=== PATIENT | male | born 1980 | race Caucasian/White ===

== ENCOUNTER 2016-05-28 09:54 | Observation (INO) | payer OTHER, BC ==
[2016-05-28] MEDS ORDERED: ONDANSETRON 4 MG/2ML 2 ML VIAL ONE (10:39)
[2016-05-28] MEDS ORDERED: HYDROMORPHONE HCL 1 MG/ML SYRINGE ONE ×3 (10:39→12:57)
[2016-05-28 10:45] LABS: ABSOLUTE NEUTROPHIL COUNT 11.7 K/mm3 (1.8-7.7); BASO # 0.1 K/mm3 (0.0-0.2); BASO % 0.4 % (0.2-1.0); EOS # 0.1 (0.0-0.5); EOS % 0.4 % (0.9-2.9); HEMATOCRIT 45.4 % (32.0-52.0); HEMOGLOBIN 15.1 gm/l (14.0-18.0); IMM NEUT # 0.1 K/mm3 (0-0.2); IMM NEUT% 0.3 % (0-1); LYMPH # 2.3 (1.0-4.8); LYMPH % 14.7 % (15-45); MEAN CELL VOLUME 85.8 fl (80.0-94.0); MEAN CORPUSCULAR HEMOGLOBIN 28.5 pg (27.0-31.0); MEAN CORPUSCULAR HGB CONC 33.3 g/dl (33.0-37.0); MEAN PLATELET VOLUME 8.8 fl (7.4-10.4); MONO # 1.5 (0.0-0.8); MONO % 9.5 % (4-12); NEUT % 74.7 % (43-75); PLATELET COUNT 237 K/mm3 (130-400); RED CELL DISTRIBUTION WIDTH 12.3 % (11.5-14.5)
[2016-05-28 10:49] LABS: SPECIFIC GRAVITY 1.015 (1.001-1.030); URINE BILIRUBIN NEGATIVE (NEGATIVE); URINE BLOOD 1+ (NEGATIVE); URINE GLUCOSE (UA) NEGATIVE (NEGATIVE); URINE LEUKOCYTE ESTERASE NEGATIVE (NEGATIVE); URINE NITRITE NEGATIVE (NEGATIVE); URINE PROTEIN TRACE (NEGATIVE); URINE UROBILINOGEN NORMAL (0-1 mg/dl)
[2016-05-28 10:50] LABS: URINE APPEARANCE CLEAR; URINE COLOR YELLOW
[2016-05-28 10:57] LABS: URINE BACTERIA 0; URINE EPITHELIAL CELLS 0 /hpf; URINE RBC 0-1 /hpf; URINE WBC NEG /hpf
[2016-05-28 11:00] LABS: ALB/GLOB RATIO 1.1 (>1.0); ALBUMIN 3.9 gm/dL (3.5-5.7)
--- NOTE | 2016-05-28 11:40 | CT ---
Name: SAVI COFFMAN Exam: Noncontrast renal stone CT Comparison: None Clinical History: Left lower quadrant pain Procedure: Helical CT using multidetector technique was applied to the abdomen and pelvis without contrast. Sagittal, axial and coronal reconstructions were obtained. An automated dose reduction technique was used to minimize patient radiation dose. Findings: CT abdomen (noncontrast): Lung bases are clear. Heart is nonenlarged. There is no pericardial effusion. Noncontrast images liver, gallbladder, pancreas, spleen, adrenal glands, right kidney, aorta, IVC, portal vein, stomach, small bowel and colon are normal. There is minimal left hydronephrosis and ureterectasis. There is also minimal left perinephric stranding and periureteral stranding. Regional skeleton is unremarkable. CT pelvis (noncontrast): Bladder is normal size. In the left ureterovesical junction, there is a 3 mm calculus. The left ureter above this level is mildly dilated. Right ureter is normal. Prostate and seminal vesicles are normal. Small bowel, colon and appendix are normal. There is a subcentimeter dense calcification in the peritoneal fat to the pelvis without prior inflammatory process. There is no free air, free fluid or suspicious adenopathy. Impression: 3 mm calculus within the left ureterovesical junction causing mild left hydronephrosis and ureterectasis. Note: The above report was uploaded to [facility]'s electronic medical records system at 1136 hours.
--- NOTE | 2016-05-28 12:02 | US ---
Name: SAVI COFFMAN Exam: Testicular ultrasound Comparison: None Clinical history: Left scrotal pain Findings: Testicular size, shape and echogenicity is normal. Right side measures 3.9 x 2.9 x 2.2 cm and left measures 2.8 x 2.7 x 2.5 cm. Blood flow is symmetric and normal. There is no testicular mass or calcification. There is no significant hydrocele and there is no varicocele. Right epididymal head is 1.5 cm in greatest dimension and left is 8 mm in greatest dimension. There is a 4 mm left epididymal head cyst. Impression: 1. No testicular mass or torsion 2. 4 mm left epididymal head cyst 3. No acute finding Note: The above report was uploaded to [facility]'s electronic medical records system at 1158 hours.
[2016-05-28] MEDS ORDERED: SODIUM CHLORIDE 0.9% 1,000 ML ONE (12:14)
[2016-05-28] MEDS ORDERED: KETOROLAC TROMETHAMINE 15 MG/ML VIAL ONE (12:51)
[2016-05-28] MEDS ORDERED: TAMSULOSIN HCL 0.4 MG CAPSULE.DR ONE (12:51)
[2016-05-28 13:30] VITALS: BMI 44.1
[2016-05-28] MEDS ORDERED: SODIUM CHLORIDE 0.9% 100 ML IV PRN (13:31)
[2016-05-28] MEDS ORDERED: BLISTEX LIPSTICK 1 EACH TP PRN (13:31)
[2016-05-28] MEDS ORDERED: MENTHOL/CETYLPYRD 1 EACH LOZENGE PO PRN (13:31)
[2016-05-28] MEDS ORDERED: SODIUM CHLORIDE 0.9% 1,000 ML IV SCH (13:31)
[2016-05-28] MEDS ORDERED: TAMSULOSIN HCL 0.4 MG CAPSULE.DR PO ONE (13:38)
[2016-05-28] MEDS ORDERED: FLU VACC 2016-17 (36MO-64Y)/PF 60 MCG/0.5 ML SYRINGE IM V ONE (13:45)
[2016-05-28] MEDS ORDERED: PUMP TUBING ONE (13:53)
[2016-05-28] MEDS ORDERED: HYDROMORPHONE HCL 0.5 MG/0.5 ML SYRINGE IV PRN (14:00)
--- NOTE | 2016-05-28 15:33 | HP ---
SAVI PATRICIO [id number] : 1980 DATE OF ADMISSION: May 28, 2016 IDENTIFICATION: Mr. Patricio is a 36-year-old patient of Dr. Phi Vasquez. CHIEF COMPLAINT: Left flank and groin pain. HISTORY OF PRESENT ILLNESS: Mr. Patricio had onset of pain in his left flank radiating into his left groin and associated with nausea starting about three days ago. This was similar to a previous kidney stone which he had in August,. He was seen at [facility] two days ago and found to have hematuria and given prescriptions for codeine, Zofran and Flomax for presumed nephrolithiasis but did not have any further workup. His pain has persisted so he came in to [facility] today where CT does show a 3 mm stone at the left ureterovesical junction as well as left hydronephrosis, and laboratories show acute kidney injury. His creatinine at [facility] was 1.06 and today is 2.0. REVIEW OF SYSTEMS: HEENT: No symptoms. RESPIRATORY: Some cough secondary to vomiting. No dyspnea. CARDIAC: No symptoms. GASTROINTESTINAL: Nausea and vomiting secondary to pain. GENITOURINARY: No dysuria. MUSCULOSKELETAL: No symptoms. PAST MEDICAL HISTORY: 1. Nephrolithiasis with a previous episode in August of 2015. 2. Morbid obesity. Body mass index 44.2. PAST SURGICAL HISTORY: None. MEDICATIONS: No chronic medications. As above, he did have some codeine, ondansetron and Flomax prescribed at [facility] for this episode. ALLERGIES: NO MEDICATION ALLERGIES BUT HE IS INTOLERANT OF HYDROCODONE WHICH GAVE HIM SEVERE VOMITING. HABITS: Occasional alcohol use, one or two beers about twice a week. No tobacco or other drugs. 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 Lives in [place] with his and children. FAMILY HISTORY: Several cases of cancer including breast and pancreatic cancer on his mother's side of the family. PHYSICAL EXAMINATION: GENERAL: This is an obese 36-year-old gentleman. He appears comfortable at this point after several doses of hydromorphone. VITAL SIGNS: Temperature 97.8 degrees Fahrenheit, pulse 73, blood pressure 123/76, respiratory rate 18, oxygen saturation 94% on room air. HEENT: Pupils are equal, round and reactive. Extraocular muscles are intact. Oropharynx is moist. CHEST: Clear to auscultation. HEART: Is regular, no murmur. ABDOMEN: Obese, soft, nontender. Normal bowel tones. EXTREMITIES: Good peripheral pulses. No cyanosis, clubbing or edema. NEUROLOGIC: Alert and oriented, no focal deficits. LABORATORY DATA: White blood cell count is 15.6, hemoglobin and hematocrit 15.1 and 45.4, platelets 237. Sodium 138, potassium 4.0, chloride 105, CO2 24, BUN 14, creatinine 2.0, glucose 106. Liver enzymes are normal. Urinalysis, specific gravity 1.015, trace protein, 1+ blood, no indication of infection. RADIOLOGY: 1. CT scan of the abdomen and pelvis positive for 3 mm calculus at the left ureterovesical junction and mild left hydronephrosis. 2. Ultrasound of the scrotum negative for testicular torsion. There is a 4 mm left epididymal head cyst. No acute findings. ASSESSMENT: Mr. Patricio is a 36-year-old who presents with ureterolithiasis causing hydronephrosis and acute kidney injury. He has underlying morbid obesity. PLAN: 1. Refer to observation on medical/surgical floor. 2. Hydration with IV normal saline. 3. Pain control with IV hydromorphone and nausea control with ondansetron if necessary. 4. Oral tamsulosin. 5. Strain all urine. We will try to collect the stone and send it for analysis. 6. Repeat laboratories in the morning. 7. FULL CODE status. 8. Venous thromboembolism risk is low, and he does not require prophylaxis.
[2016-05-28] MEDS: SODIUM CHLORIDE 0.9% 1,000 ML IV SCH ×2 (15:34→19:41)
[2016-05-28] MEDS: ONDANSETRON 4 MG/2ML 2 ML VIAL IV PRN ×2 (17:48→19:44)
[2016-05-28] MEDS: HYDROMORPHONE HCL 1 MG/ML SYRINGE IV PRN ×2 (17:48→19:42)
[2016-05-29] MEDS: SODIUM CHLORIDE 0.9% 1,000 ML IV SCH ×7 (00:03→23:15)
[2016-05-29] MEDS: HYDROMORPHONE HCL 1 MG/ML SYRINGE IV PRN ×7 (00:13→23:15)
[2016-05-29] MEDS: ONDANSETRON 4 MG/2ML 2 ML VIAL IV PRN ×8 (00:14→23:15)
[2016-05-29 06:10] LABS: HEMATOCRIT 40.4 % (32.0-52.0); HEMOGLOBIN 13.1 gm/l (14.0-18.0); MEAN CELL VOLUME 89.8 fl (80.0-94.0); MEAN CORPUSCULAR HEMOGLOBIN 29.1 pg (27.0-31.0); MEAN CORPUSCULAR HGB CONC 32.4 g/dl (33.0-37.0); RED CELL DISTRIBUTION WIDTH 12.4 % (11.5-14.5)
[2016-05-29 06:35] LABS: CALCIUM 9.5 mg/dL (8.6-10.3)
--- NOTE | 2016-05-29 07:32 | PDOC43 ---
- Subjective Chief Complaint: left groin pain Continues to have pain when hydromorphone wears off, some bloody urine. - Objective Vital Signs Temperature 99.2 F 05/29/16 03:20 Pulse Rate 71 05/29/16 03:20 Respiratory Rate 16 05/29/16 03:20 Blood Pressure 114/69 05/29/16 03:20 O2 Saturation by Pulse Oximetry 95 05/29/16 03:20 Oxygen Delivery Method Room Air Oxygen Flow Rate 0 Intake and Output 05/28/16 05/29/16 05/30/16 06:59 06:59 06:59 Intake Total 5397 Output Total 2450 Balance 2947 General: Alert, Oriented x3, Cooperative, No Acute Distress HEENT: Mucous membr. moist/pink Lungs: Clear to Auscultation Bilaterally Cardiovascular: Regular Rate and Rhythm Abdomen: Soft, Tenderness (mild in LLQ), Normal Bowel Sounds, No Masses Extremities: Normal Pulses, No Edema Skin: Normal Color Neurological: Normal Speech Psych/Mental Status: Normal Mood Laboratory 05/29/16 05:30 05/29/16 05:30 05/29/16 05:30 RBC 4.50 L MCHC 32.4 L Anion Gap 7 L Current Medications: Current meds reviewed in EMR. - Problems: Assessment/Plan (1) Nephrolithiasis Status: Chronic Assessment/Plan: 3 mm stone at left UVJ causing pain and hematuria. Continue IVF, tamsulosin, pain treatment and await spontaneous passing of stone. (2) SHERRI (acute kidney injury) Status: Acute Assessment/Plan: Creatinine improved from 2.0 to 1.3, continue IVF and anticipate resolution. (3) Obesity, morbid, BMI 40.0-49.9 Status: Chronic Assessment/Plan: Complicates care (4) Anemia Qualifiers: Anemia type: other cause Status: Acute Assessment/Plan: Dilution from IVF. VTE Prophylaxis: not indicated
[2016-05-29] MEDS: ACETAMINOPHEN 325 MG TABLET PO PRN ×2 (08:09→14:55)
[2016-05-29] MEDS: TAMSULOSIN HCL 0.4 MG CAPSULE.DR PO SCH (09:47)
[2016-05-30] MEDS: SODIUM CHLORIDE 0.9% 1,000 ML IV SCH ×3 (07:13→12:55)
[2016-05-30] MEDS ORDERED: OXYCODONE/ACETAMINOPHEN 5/325 MG TABLET PO PRN (07:16)
[2016-05-30] MEDS ORDERED: DIPHENHYDRAMINE HCL 25 MG CAPSULE PO PRN (07:16)
[2016-05-30] MEDS ORDERED: KETOROLAC TROMETHAMINE 15 MG/ML VIAL IV PRN (07:18)
[2016-05-30 07:48] LABS: CALCIUM 8.7 mg/dL (8.6-10.3)
--- NOTE | 2016-05-30 08:13 | PDOC43 ---
- Subjective Chief Complaint: left groin pain Patient noted to have some ongoing pain, but some nausea associated with pain med. Reports able to walk ok. - Objective Vital Signs Temperature 98.3 F 05/30/16 07:15 Pulse Rate 72 05/30/16 07:15 Respiratory Rate 16 05/30/16 07:15 Blood Pressure 150/86 05/30/16 07:15 O2 Saturation by Pulse Oximetry 96 05/30/16 07:15 Oxygen Delivery Method Room Air Oxygen Flow Rate 0 Vital Signs Last 12 Hours Temp Pulse Resp BP Pulse Ox 05/30/16 07:15 98.3 F 72 16 150/86 96 05/30/16 02:00 98.1 F 82 16 123/70 96 05/30/16 01:00 16 05/29/16 20:00 97.7 F 70 20 125/75 93 Intake and Output 05/28/16 05/29/16 05/30/16 23:59 23:59 23:59 Intake Total 1857 6572 500 Output Total 350 5675 4350 Balance 1507 897 -3850 General: Alert, No Acute Distress HEENT: Atraumatic Lungs: Clear to Auscultation Bilaterally, Normal Air Movement Cardiovascular: Regular Rate and Rhythm Abdomen: Soft, Tenderness (mild discomfort on L abd), Normal Bowel Sounds, Non- Distended Extremities: No Edema, No Tenderness Neurological: Normal Speech Psych/Mental Status: Normal Affect Laboratory 05/29/16 05:30 BMP still pending this am. Current Medications: Current meds reviewed in EMR. Active Medications Acetaminophen (Tylenol) 650 mg PO Q6H PRN PRN Reason: Pain or Temperature > 100.5 F Last Admin: 05/29/16 14:55 Dose: 650 mg Benzocaine/Menthol (Cepacol) 1 each PO PRN PRN PRN Reason: Sore Throat Diphenhydramine HCl (Benadryl) 25 mg PO QID PRN PRN Reason: Itching Sodium Chloride (Sodium Chloride 0.9%) 100 mls @ 25 mls/hr IV PRN PRN PRN Reason: Flush Sodium Chloride (Sodium Chloride 0.9%) 1,000 mls @ 250 mls/hr IV .Q4H BE Last Admin: 05/30/16 07:13 Dose: 250 mls/hr Ketorolac Tromethamine (Toradol) 15 mg IV Q6H PRN PRN Reason: Pain Ondansetron HCl (Zofran) 4 - 8 mg IV Q3H PRN PRN Reason: Nausea/Vomiting Last Admin: 05/29/16 23:15 Dose: 4 mg Oxycodone/Acetaminophen (Percocet 5/325) 0.5 - 2 tab PO QID PRN PRN Reason: Pain Petrolatum/Paraffin/Mineral Oil (Blistex) 1 each TP PRN PRN PRN Reason: Dry and/or chapped lips Sodium Chloride (Normal Saline 10ml Flush) 10 - 50 ml IV PRN PRN PRN Reason: IV Flush Last Admin: 05/29/16 18:23 Dose: 10 ml Sodium Chloride (Normal Saline 10ml Flush) 10 ml IV Q8HR BE Last Admin: 05/30/16 00:27 Dose: Not Given Tamsulosin HCl (Flomax) 0.8 mg PO DAILY [facility] Last Admin: 05/29/16 09:47 Dose: 0.8 mg - Problems: Assessment/Plan (1) Nephrolithiasis Status: Acute Assessment/Plan: 3 mm stone at left UVJ causing pain and hematuria. Continue IVF, tamsulosin, pain treatment and await spontaneous passing of stone. Check U/S (2) SHERRI (acute kidney injury) Status: Acute Assessment/Plan: Creatinine improved from 2.0 to 1.3, continue IVF and anticipate resolution. Awaiting today's result, but anticipate use of Toradol for pain. (3) Anemia Qualifiers: Anemia type: other cause Status: Acute Assessment/Plan: Decrease in Hb due to dilution from IVF, rather than actual anemia. (4) Obesity, morbid, BMI 40.0-49.9 Status: Chronic Assessment/Plan: Complicates care VTE Prophylaxis: not indicated, encourage ambulation
[2016-05-30] MEDS: TAMSULOSIN HCL 0.4 MG CAPSULE.DR PO SCH (08:27)
--- NOTE | 2016-05-30 12:11 | US ---
RENAL ULTRASOUND HISTORY: 3 mm left UVJ calculus on prior CT. Follow-up study. Sonography was performed of the kidneys and bladder. RIGHT RENAL DIMENSIONS: 12.3 x 6.2 x 5.6 cm. LEFT RENAL DIMENSIONS: 12.2 x 5.4 x 5.3 cm. CORTICAL THICKNESS: 0.95 cm on the right, 0.82 cm on the left. RESISTIVE INDICES: 0.68 on the right, 0.64 on the left. FOCAL RENAL LESIONS: No solid or cystic lesions. No shadowing echogenic foci. COLLECTING SYSTEM DILATATION: None identified. Resolution of left-sided collecting system dilatation. PREVOID BLADDER VOLUME: 381 cc. POST VOID BLADDER VOLUME: 13 mL, shadowing calculus not identified. BLADDER FILLING DEFECTS: Not identified. URETERAL JETS: Identified bilaterally. IMPRESSION: Normal sonographic appearance of the kidneys and bladder, with no evidence of residual upper tract obstruction. Normal resistive indices. Findings consistent with interval passage of previously described 3 mm left ureterovesicular junction calculus.
[2016-05-30 14:00] VITALS: BP 115/73
--- NOTE | 2016-05-31 02:19 | DS ---
SAVI COFFMAN [id number] DATE OF ADMISSION: May 28, 2016 DATE OF DISCHARGE: May 30, 2016 DISCHARGE DIAGNOSES: Partially obstructing left ureteral kidney stone causing pain and acute kidney injury. OTHER DIAGNOSES: Include: 1. Morbid obesity. 2. Mild anemia thought to be dilutional. SUMMARY OF ADMISSION AND HOSPITAL COURSE: The patient is a 36-year-old male followed by Dr. Phi Vasquez who presented with complaints of left flank and groin pain. Pain was acute in onset about three days prior to admission associated with nausea. He initially was treated at [facility], prescribed codeine, Zofran and Flomax but his pain became uncontrollable, and he returned for further evaluation this time coming to [facility]. At [facility] he had a CT of his abdomen showing a 3 mm stone at the left ureterovesical junction causing mild left-sided hydronephrosis and ureterectasis. Laboratory studies also showed elevated creatinine of 2.0 from a baseline creatinine of 1.0 and a mild leukocytosis with a white count of 15.6. Urine did not show any white cells or evidence of infection though. He was referred to the hospitalist service and initially was placed under observation, treated with parenteral pain medications and aggressively hydrated. His pain persisted until May 30, 2016 in the morning. He seemed to have improvement of his pain after that. He had a renal ultrasound which showed improvement in the hydronephrosis, and they were unable to visualize the stone on ultrasound consistent with a passed stone. Patient has been straining his urine however and did not identify any stone passage. Given the reassuring ultrasound and improvement in his pain symptoms, he is felt to be stable for discharge. If he has further pain, he can manage with oral medications. PHYSICAL EXAM: VITAL SIGNS: His discharge vital signs showed a temperature of 98.4, pulse 72 to 98, blood pressure is 115/73, respirations 16, oxygen saturation 93% on room air. Body mass index 44.8. Weight is 141.6 kilograms. GENERAL: This is an obese male in no acute distress. HEENT: Is unremarkable. LUNGS: Are clear to auscultation bilaterally. CARDIOVASCULAR: Exam reveals a regular rate and rhythm without a murmur. ABDOMEN: Is soft, nontender, nondistended with positive bowel sounds. No flank discomfort is present. EXTREMITIES: No peripheral edema is present. LABORATORY STUDIES: Showed a white count improved to 9.2 on May 29, 2016, hemoglobin of 13.1 and a platelet count of 212,000. Chemistry profile showed a sodium 141, potassium 3.8, carbon dioxide 28, creatinine 1.1. DISPOSITION: Home. DISCHARGE CONDITION: Good. DISCHARGE MEDICATIONS: 1. Flomax 0.8 mg daily until absolutely sure the stone has passed. He is given a 10 day supply. 2. He is also given Percocet 0.5 to 2 tablets up to four times daily as needed for pain. Thirty pills, no refills. REFERRALS: He can follow up with his primary care provider, Phi Vasquez, as scheduled on June 01, 2016 at 11:30 a.m. Cc: Phi Vasquez M.D.
== END 2016-05-30 14:15 | disposition home or self-care (01) ==
LOC: ED 09:54 → MS 12:49
PROVIDERS: ADMIT Family Medicine; ATTEND Family Medicine
DX: N20.0 Calculus of kidney (principal); N17.9 Acute kidney failure, unspecified; E66.01 Morbid (severe) obesity due to excess calories; D64.9 Anemia, unspecified; Z68.41 Body mass index [BMI] 40.0-44.9, adult
CPT/HCPCS: 90686; 85027; 85025; 80048 ×2; 80053; 81001; 36415 ×2; 74176; 76770; 76870; 96375 ×2; 96376 ×2; 99284; 96374; 96361; 99285; J1170 ×12; A9270 ×3; J1885 ×2; J2405 ×11; J7030 ×13; J7050